=== PATIENT | female | born 1955 | race Caucasian/White ===

== ENCOUNTER 2022-03-31 13:41 | Inpatient (IN) | payer MEDICARE ==
[~2022-03-31] VITALS: Ht 154.9 cm; Wt 62.4 kg
[~2022-03-31 13:41] MED LIST: KETAMINE HCL 50 MG/ML 10 ML VIAL IVP ONE
[2022-03-31] MEDS ORDERED: MORPHINE SULFATE 4 MG/ML SYRINGE IVP ONE (14:00)
[2022-03-31] MEDS ORDERED: ONDANSETRON HCL 4 MG/2 ML VIAL IVP ONE ×2 (14:00→15:00)
[2022-03-31] MEDS ORDERED: MORPHINE SULFATE 10 MG/ML VIAL IVP ONE ×2 (14:00→14:15)
[2022-03-31] MEDS ORDERED: SODIUM CHLORIDE 0.9% 1,000 ML IV ONE ×2 (14:15→16:45)
[2022-03-31] MEDS ORDERED: BUPIVACAINE HCL/PF 0.5% 30 ML VIAL ONE (14:59)
[2022-03-31 15:14] LABS: COVID AG,FIA SOURCE NASAL SWAB
[2022-03-31] MEDS ORDERED: METOCLOPRAMIDE HCL 5 MG/ML 2 ML VIAL IVP ONE (15:15)
[2022-03-31] MEDS ORDERED: DEXAMETHASONE SOD PHOS 4 MG/ML VIAL IVP ONE (15:15)
[2022-03-31] MEDS ORDERED: ROPIVACAINE HCL/PF 0.2% 100 ML ED PRN (15:15)
[2022-03-31] MEDS ORDERED: SODIUM CHLORIDE 0.9% 100 ML ONE (15:46)
[2022-03-31] MEDS ORDERED: IOHEXOL 350 MG/ML 100 ML VIAL ONE (15:46)
[2022-03-31 16:08] LABS: BASOPHILS % (AUTO) 0.2 % (0.0-2.0); EOSINOPHILS % (AUTO) 1.8 % (1.0-6.0); HEMATOCRIT 38.9 % (36-46); HEMOGLOBIN 12.9 g/dL (12.0-16.0); LYMPHOCYTES # (AUTO) 1.3 K/uL (1.0-4.8); LYMPHOCYTES % (AUTO) 12.9 % (22.0-44.0); MEAN CORPUSCULAR HEMOGLOBIN 29.9 pg (26.0-34.0); MEAN CORPUSCULAR HGB CONC 33.1 G/dL (31.0-37.0); MEAN CORPUSCULAR VOLUME 90 fL (80-100); MONOCYTES # (AUTO) 0.6 K/uL (0.1-1.0); MONOCYTES % (AUTO) 6.3 % (2.0-9.0); NEUTROPHILS % (AUTO) 78.8 % (40.0-70.0); PLATELET COUNT (AUTO) 244 K/uL (150-450); RED BLOOD CELL COUNT(AUTO) 4.31 MIL/uL (4.00-5.20); RED CELL DISTRIBUTION WIDTH 14.4 % (11.5-14.5)
[2022-03-31 16:15] LABS: CALCIUM, TOTAL 9.3 mg/dL (8.8-10.5); CREATININE 1.38 mg/dL (0.60-1.30); POTASSIUM 3.9 mmol/L (3.5-5.1)
[2022-03-31 16:21] LABS: ALBUMIN 3.6 g/dL (3.4-5.0); BILIRUBIN,TOTAL 0.6 mg/dL (0.1-1.0); TOTAL PROTEIN, SERUM 6.7 g/dL (6.4-8.2)
[2022-03-31] MEDS ORDERED: ONDANSETRON HCL 4 MG/2 ML VIAL IVP PRN ×2 (17:15→19:00)
[2022-03-31] MEDS ORDERED: ACETAMINOPHEN 325 MG TABLET PO PRN ×2 (17:15→19:00)
[2022-03-31] MEDS ORDERED: 0.9% SODIUM CHLORIDE 10 ML SYRINGE IVP PRN (19:00)
[2022-03-31] MEDS: DOCUSATE SODIUM 100 MG CAPSULE PO SCH (21:00)
[2022-03-31 21:41] VITALS: BP 143/93
[2022-03-31 21:42] VITALS: BP 143/93
[2022-03-31] MEDS: HEPARIN SODIUM,PORCINE 5,000 UNITS/ML VIAL SQ SCH (23:47)
[2022-04-01] MEDS: HEPARIN SODIUM,PORCINE 5,000 UNITS/ML VIAL SQ SCH ×3 (00:27→23:25)
[2022-04-01 04:27] VITALS: BP 137/88
[2022-04-01 07:56] VITALS: BP 136/59
[2022-04-01] MEDS: OxyCODONE HCL/ACETAMINOPHEN 5-325 MG TABLET PO PRN ×4 (07:58→23:29)
[2022-04-01] MEDS: DOCUSATE SODIUM 100 MG CAPSULE PO SCH ×2 (08:09→21:00)
[2022-04-01] MEDS: FAMOTIDINE 20 MG TABLET PO SCH (08:09)
[2022-04-01 14:34] VITALS: BP 119/69
[2022-04-01] MEDS: MORPHINE SULFATE 2 MG/ML SYRINGE IVP PRN ×2 (14:39→21:05)
[2022-04-01 20:08] VITALS: BP 166/94
[2022-04-01 21:47] VITALS: BP 140/70
[2022-04-01] MEDS: METOPROLOL SUCCINATE 50 MG ER TABLET PO SCH (23:23)
[2022-04-02] MEDS ORDERED: NALOXONE HCL 1 MG/ML 2 ML SYRINGE IVP PRN (00:45)
[2022-04-02] MEDS: MORPHINE SULFATE 2 MG/ML SYRINGE IVP PRN ×4 (04:41→21:35)
[2022-04-02 04:52] VITALS: BP 137/74
[2022-04-02 07:31] VITALS: BP 134/76
[2022-04-02] MEDS: HEPARIN SODIUM,PORCINE 5,000 UNITS/ML VIAL SQ SCH ×2 (08:00→16:00)
[2022-04-02] MEDS ORDERED: METOPROLOL SUCCINATE 50 MG ER TABLET PO SCH (09:00)
[2022-04-02] MEDS: DOCUSATE SODIUM 100 MG CAPSULE PO SCH ×2 (09:00→21:00)
[2022-04-02] MEDS: MULTIVITAMINS, THERAPEUTIC TABLET PO SCH (11:16)
[2022-04-02] MEDS: METOPROLOL SUCCINATE 50 MG ER TABLET PO SCH (11:16)
[2022-04-02] MEDS: FAMOTIDINE 20 MG TABLET PO SCH (11:16)
[2022-04-02] MEDS: PANTOPRAZOLE SODIUM 40 MG DR TABLET PO SCH (11:16)
[2022-04-02 15:09] VITALS: BP 127/86
[2022-04-02 19:28] VITALS: BP 142/67
[2022-04-03] MEDS: HEPARIN SODIUM,PORCINE 5,000 UNITS/ML VIAL SQ SCH ×5 (00:27→23:56)
[2022-04-03] MEDS: MORPHINE SULFATE 2 MG/ML SYRINGE IVP PRN ×4 (01:47→19:49)
[2022-04-03 04:30] VITALS: BP 140/78
[2022-04-03 08:21] VITALS: BP 135/76
[2022-04-03] MEDS: DOCUSATE SODIUM 100 MG CAPSULE PO SCH ×2 (09:00→19:48)
[2022-04-03] MEDS: METOPROLOL SUCCINATE 50 MG ER TABLET PO SCH (09:11)
[2022-04-03] MEDS: MULTIVITAMINS, THERAPEUTIC TABLET PO SCH (09:11)
[2022-04-03] MEDS: PANTOPRAZOLE SODIUM 40 MG DR TABLET PO SCH (09:11)
[2022-04-03] MEDS: FAMOTIDINE 20 MG TABLET PO SCH (09:11)
[2022-04-03 15:45] VITALS: BP 153/89
[2022-04-03 19:28] VITALS: BP 130/94
[2022-04-04] MEDS: MORPHINE SULFATE 2 MG/ML SYRINGE IVP PRN ×3 (00:40→20:55)
[2022-04-04 04:00] VITALS: BP 159/81
[2022-04-04] MEDS ORDERED: IPRA3AMP23 IH (04:41)
[2022-04-04] MEDS ORDERED: PANT-31 PO (04:41)
[2022-04-04] MEDS ORDERED: ROSU20TA73 PO (04:41)
[2022-04-04] MEDS ORDERED: POTA-92 PO (04:41)
[2022-04-04] MEDS ORDERED: SACU1TAB7 PO (04:41)
[2022-04-04] MEDS ORDERED: METO25XL PO (04:41)
[2022-04-04] MEDS ORDERED: VIT1CAPS26 PO (04:41)
[2022-04-04] MEDS ORDERED: BIOT5000 PO (04:41)
[2022-04-04] MEDS ORDERED: CLOP75TA60 PO (04:41)
[2022-04-04] MEDS ORDERED: SODIUM CHLORIDE 0.9% 1,000 ML ONE (05:26)
[2022-04-04] MEDS ORDERED: SODIUM CHLORIDE 0.9% 1,000 ML IV SCH (05:30)
[2022-04-04] MEDS: HEPARIN SODIUM,PORCINE 5,000 UNITS/ML VIAL SQ SCH ×3 (08:00→23:24)
[2022-04-04] MEDS ORDERED: CLINDAMYCIN PHOS 150 MG/ML 4 ML VIAL ONE (08:22)
[2022-04-04] MEDS: DOCUSATE SODIUM 100 MG CAPSULE PO SCH ×2 (09:00→20:55)
[2022-04-04 10:04] VITALS: BP 145/73
[2022-04-04] MEDS: METOPROLOL SUCCINATE 50 MG ER TABLET PO SCH (10:05)
[2022-04-04] MEDS: FAMOTIDINE 20 MG TABLET PO SCH (10:05)
[2022-04-04] MEDS: MULTIVITAMINS, THERAPEUTIC TABLET PO SCH (10:05)
[2022-04-04] MEDS: PANTOPRAZOLE SODIUM 40 MG DR TABLET PO SCH (10:05)
[2022-04-04] MEDS ORDERED: MIDAZOLAM HCL 2 MG/2 ML VIAL IVP ONE (12:00)
[2022-04-04] MEDS ORDERED: FentaNYL CITRATE PF 100 MCG/2 ML VIAL IVP ONE (12:00)
[2022-04-04] MEDS ORDERED: METO-391 PO (13:40)
[2022-04-04] MEDS ORDERED: FURO20TA4 PO (13:40)
[2022-04-04 15:43] VITALS: BP 116/72
[2022-04-04] MEDS ORDERED: OXYGEN THERAPY IH SCH (20:00)
[2022-04-04 20:26] VITALS: BP 126/70
[2022-04-04] MEDS: ETHYL ALCOHOL 62% ANTISEPTIC NASAL SANITIZER 0.6 ML AMPUL NASAL SCH (20:55)
[2022-04-05] MEDS: MORPHINE SULFATE 2 MG/ML SYRINGE IVP PRN ×3 (00:59→13:03)
[2022-04-05 05:00] VITALS: BP 129/71
[2022-04-05 06:39] LABS: BASOPHILS % (AUTO) 0.1 % (0.0-2.0); EOSINOPHILS % (AUTO) 0.8 % (1.0-6.0); HEMATOCRIT 30.4 % (36-46); HEMOGLOBIN 10.4 g/dL (12.0-16.0); LYMPHOCYTES # (AUTO) 1.4 K/uL (1.0-4.8); LYMPHOCYTES % (AUTO) 14.6 % (22.0-44.0); MEAN CORPUSCULAR HEMOGLOBIN 30.7 pg (26.0-34.0); MEAN CORPUSCULAR HGB CONC 34.1 G/dL (31.0-37.0); MEAN CORPUSCULAR VOLUME 90 fL (80-100); MONOCYTES # (AUTO) 0.9 K/uL (0.1-1.0); MONOCYTES % (AUTO) 9.1 % (2.0-9.0); NEUTROPHILS # (AUTO) 7.3 K/uL (1.8-7.7); NEUTROPHILS % (AUTO) 75.4 % (40.0-70.0); PLATELET COUNT (AUTO) 293 K/uL (150-450); RED BLOOD CELL COUNT(AUTO) 3.38 MIL/uL (4.00-5.20); RED CELL DISTRIBUTION WIDTH 14.5 % (11.5-14.5)
[2022-04-05 06:56] LABS: CALCIUM, TOTAL 9.7 mg/dL (8.8-10.5); CREATININE 1.01 mg/dL (0.60-1.30)
[2022-04-05 07:40] VITALS: BP 152/74
[2022-04-05] MEDS: PANTOPRAZOLE SODIUM 40 MG DR TABLET PO SCH (08:48)
[2022-04-05] MEDS: DOCUSATE SODIUM 100 MG CAPSULE PO SCH (08:48)
[2022-04-05] MEDS: FAMOTIDINE 20 MG TABLET PO SCH (08:49)
[2022-04-05] MEDS: MULTIVITAMINS, THERAPEUTIC TABLET PO SCH (08:50)
[2022-04-05] MEDS: METOPROLOL SUCCINATE 50 MG ER TABLET PO SCH (08:50)
[2022-04-05] MEDS: HEPARIN SODIUM,PORCINE 5,000 UNITS/ML VIAL SQ SCH (08:51)
[2022-04-05] MEDS: ETHYL ALCOHOL 62% ANTISEPTIC NASAL SANITIZER 0.6 ML AMPUL NASAL SCH (08:51)
[2022-04-05] MEDS ORDERED: HYDR-4723 PO (14:38)
[2022-04-05] MEDS ORDERED: ROCURONIUM BROMIDE 10 MG/ML 5 ML VIAL IVP ONE (15:14)
[2022-04-05] MEDS ORDERED: ONDANSETRON HCL 4 MG/2 ML VIAL IVP ONE (15:14)
[2022-04-05] MEDS ORDERED: LIDOCAINE/PF 2% 5 ML VIAL IM ONE (15:14)
[2022-04-05] MEDS ORDERED: ALBUTEROL SULFATE HFA 90 MCG/PUFF 8 GM INHALER IH ONE (15:14)
[2022-04-05] MEDS ORDERED: PROPOFOL 1% 20 ML VIAL IVP ONE (15:14)
== END 2022-04-05 15:15 | disposition home health service (06) | DRG 560 ==
LOC: EMS 13:42 → 6S 20:10
PROVIDERS: ADMIT Internal Medicine; ATTEND Internal Medicine
PROC: 0SSCXZZ Reposition Right Knee Joint, External Approach (ICD-10-PCS; 2022-03-31)
PROC: BQ171ZZ Fluoroscopy of Right Knee using Low Osmolar Contrast (ICD-10-PCS; 2022-04-04)
PROC: 2W3LXYZ Immobilization of Right Lower Extremity using Other Device (ICD-10-PCS; principal; 2022-04-04 08:00)
DX: T84.022A Instability of internal right knee prosthesis, initial encounter (principal); I50.22 Chronic systolic (congestive) heart failure; F17.210 Nicotine dependence, cigarettes, uncomplicated; G57.31 Lesion of lateral popliteal nerve, right lower limb; J44.9 Chronic obstructive pulmonary disease, unspecified; I11.0 Hypertensive heart disease with heart failure; I48.91 Unspecified atrial fibrillation; Z20.822 Contact with and (suspected) exposure to COVID-19; W01.0XXA Fall on same level from slipping, tripping and stumbling without subsequent striking against object, initial encounter; R79.89 Other specified abnormal findings of blood chemistry; I70.201 Unspecified atherosclerosis of native arteries of extremities, right leg; Y92.238 Other place in hospital as the place of occurrence of the external cause; K21.9 Gastro-esophageal reflux disease without esophagitis; S83.411A Sprain of medial collateral ligament of right knee, initial encounter; E66.9 Obesity, unspecified; M21.371 Foot drop, right foot; S50.312A Abrasion of left elbow, initial encounter; S83.421A Sprain of lateral collateral ligament of right knee, initial encounter; S83.104A Unspecified dislocation of right knee, initial encounter; Y79.2 Prosthetic and other implants, materials and accessory orthopedic devices associated with adverse incidents; Z79.01 Long term (current) use of anticoagulants; Y93.89 Activity, other specified; Y99.8 Other external cause status; Z88.0 Allergy status to penicillin; Z88.2 Allergy status to sulfonamides; Z68.26 Body mass index [BMI] 26.0-26.9, adult; Z79.899 Other long term (current) drug therapy
CPT/HCPCS: 73552; 73706; 80048; 80053; 85025; 87081; 93005; 93306; 93926; 97161; 97164; 97530; 99291; J1100; J1644; J2250; J2270; J2405; J2704; J2765; J2795; J3010; J3490; J3535; J7030; J7050; Q9967